=== PATIENT | female | born 1965 ===

== ENCOUNTER 2017-12-20 13:13 | Emergency (ER) | payer MEDICAID ==
[2017-12-20 13:57] VITALS: TEMP 98; O2SAT 96
--- NOTE | 2017-12-20 14:53 | C.PDOC ---
History Of Present Illness 52yo female with history of arthritis, presents to ER with complaints of pain and swelling to her right elbow. Patient states the pain is 6/10 and denies any trauma or injuries to the area. She also reports right knee pain. She denies any fever, chills, weakness, numbness or tingling to her extremities. Patient has no other medical complaints. PMD: [facility] Time Seen by Provider: 12/20/17 14:02 Chief Complaint (Nursing): Upper Extremity Problem/Injury History Per: Patient History/Exam Limitations: no limitations Onset/Duration Of Symptoms: Days Current Symptoms Are (Timing): Still Present Exacerbating Factor(s): Strenuous Use Of Affected Area Additional History Per: Patient Past Medical History Reviewed: Historical Data, Nursing Documentation, Vital Signs Vital Signs: Last Vital Signs Temp 98.0 F 12/20/17 13:55 Pulse 78 12/20/17 15:04 Resp 18 12/20/17 15:04 BP 135/80 12/20/17 15:04 Pulse Ox 96 12/20/17 15:04 - Medical History PMH: Asthma, Depression, Diabetes, HTN, Hypercholesterolemia Surgical History: No Surg Hx Family History: States: No Known Family Hx, Unknown Family Hx - Social History Hx Tobacco Use: Yes Hx Alcohol Use: No Hx Substance Use: No - Immunization History Hx Tetanus Toxoid Vaccination: Yes Hx Influenza Vaccination: No Hx Pneumococcal Vaccination: No Review Of Systems Except As Marked, All Systems Reviewed And Found Negative. Constitutional: Negative for: Fever, Chills Musculoskeletal: Positive for: Other (right elbow pain and swelling; right knee pain ) Physical Exam - Physical Exam Appears: Non-toxic, No Acute Distress Skin: Normal Color, Warm, Dry Head: Atraumatic, Normacephalic Eye(s): bilateral: Normal Inspection, PERRL, EOMI Neck: Supple Chest: Symmetrical Cardiovascular: Rhythm Regular Respiratory: Normal Breath Sounds Extremity: Normal ROM (FROM of right elbow, right knee), Tenderness (right elbow tender to palpation; right knee non-tender), No Deformity, Swelling ( inflammation to right elbow consistent with bursitis; no warmth, erythema or infection noted.) Neurological/Psych: Oriented x3 ED Course And Treatment O2 Sat by Pulse Oximetry: 96 (RA) Pulse Ox Interpretation: Normal Medical Decision Making Medical Decision Making: Impression: Bursitis Plan: -- Motrin 600mg PO -- Tylenol 975 mg PO Time: 1452 Patient reports improvement in pain. Instructed to take Motrin as needed for pain and to follow up with PMD in 2-3 days. Disposition Counseled Patient/Family Regarding: Need For Followup, Rx Given - Disposition Referrals: [facility] [Outside] Disposition: HOME/ ROUTINE Disposition Time: 14:52 Condition: STABLE Prescriptions: Ibuprofen [Motrin] 800 mg PO TID #30 tab Instructions: Bursitis Forms: [facility] (Kiswahili), General Discharge Instructions - POA Present On Arrival: None - Clinical Impression Clinical Impression: Bursitis - Scribe Statement The provider has reviewed the documentation as recorded by the Scribe (Sandra Ingram) Provider Attestation: All medical record entries made by the Scribe were at my direction and personally dictated by me. I have reviewed the chart and agree that the record accurately reflects my personal performance of the history, physical exam, medical decision making, and the department course for this patient. I have also personally directed, reviewed, and agree with the discharge instructions and disposition.
[2017-12-20 15:05] VITALS: BP 135/80; PULSE 78; RESP 18
== END 2017-12-20 15:05 | disposition home or self-care (01) ==
LOC: C.ER 13:13
DX: M70.31 Other bursitis of elbow, right elbow (principal)